=== PATIENT | female | born 1980 | race Caucasian/White ===

== ENCOUNTER → 2017-02-10 | Outpatient (CLI) | payer OTHER | LOC: CT 08:00 | DX: J32.8 Other chronic sinusitis (principal) | CPT/HCPCS: 70486 ==

== ENCOUNTER 2017-03-21 13:37 | Emergency (ER) | payer OTHER ==
[2017-03-21 15:46] LABS: HEMOGLOBIN 16.3 gm/dl (12.3-15.3); RED BLOOD COUNT 5.11 M/UL (4.00-5.10); WHITE BLOOD COUNT 8.5 K/UL (4.5-11.0)
[2017-03-21 16:02] LABS: BUN/CREATININE RATIO 10 (0-10)
== END 2017-03-21 19:00 | disposition home or self-care (01) ==
LOC: ER1 13:37
PROVIDERS: Physician Assistant
DX: R10.13 Epigastric pain (principal); R10.11 Right upper quadrant pain; R10.12 Left upper quadrant pain; R61 Generalized hyperhidrosis; F17.210 Nicotine dependence, cigarettes, uncomplicated; Z91.041 Radiographic dye allergy status
CPT/HCPCS: 36415; 71010; 80053; 80307; 81001; 82150; 82550; 82553; 83690; 83874; 84484; 84703; 85025; 93005; 96361; 96374; 96375; 99284; J2270; J2550; J7050; Q9962

== ENCOUNTER → 2020-10-29 | Outpatient (CLI) | payer OTHER | LOC: EXRD 11:33 | DX: Z51.81 Encounter for therapeutic drug level monitoring (principal); Z79.1 Long term (current) use of non-steroidal anti-inflammatories (NSAID) | CPT/HCPCS: 73564 ==